=== PATIENT | male | born 1995 | race Caucasian/White ===

== ENCOUNTER 2017-01-12 21:59 | Emergency (ER) | payer SELFPAY ==
[~2017-01-12] VITALS: Ht 162.6 cm; Wt 68.2 kg
[~2017-01-12 21:59] MED LIST: AMOXICILLIN875 MG PO; CEPHALEXIN500 M1 PO; CETIRIZINE10 MG PO; GOOD NEIGHBOR200 M3 PO; NO HOME MEDICATIONS; NORCO 325 MG-51 TA1 PO; NORCO 325 MG-51 TAB PO; ONDANSETRON8 M1 PO; PREDNISONE20 M1 PO; PREDNISONE20 MG PO; RELION VEN0.09 MG/Ac IH; ZOFRAN ODT8 MG PO; ZOFRAN8 MG PO
[2017-01-12] MEDS ORDERED: AMOXICILLIN875 MG PO (22:46)
[2017-01-12 23:00] VITALS: BP 134/74
== END 2017-01-12 23:00 | disposition home or self-care (01) ==
LOC: ED 21:59
DX: K08.89 Other specified disorders of teeth and supporting structures (principal); K03.81 Cracked tooth; F17.210 Nicotine dependence, cigarettes, uncomplicated

== ENCOUNTER → 2022-03-06 | Outpatient (CLI) | payer SELFPAY | LOC: LAB 10:20 | DX: Z20.2 Contact with and (suspected) exposure to infections with a predominantly sexual mode of transmission (principal) ==

== ENCOUNTER → 2022-03-07 | Outpatient (CLI) | payer SELFPAY ==
[2022-03-13 14:24] LABS: HERPES SIMPLEX TYPE 2 IGG 0.05
== END ==
LOC: LAB 18:32
PROVIDERS: Nurse Practitioner
DX: Z20.822 Contact with and (suspected) exposure to COVID-19 (principal)

== ENCOUNTER → 2024-10-06 | Outpatient (CLI) | payer BC, OTHER ==
[2024-10-06 14:20] LABS: TOTAL PROTEIN 8.3 g/dL (6.4-8.3)
[2024-10-06 14:22] LABS: TOTAL BILIRUBIN 0.8 mg/dL (0.2-1.2)
[2024-10-06 14:26] LABS: MAGNESIUM 1.92 mg/dL (1.60-2.60)
== END ==
LOC: LAB 13:48
PROVIDERS: Nurse Practitioner Family
DX: R22.33 Localized swelling, mass and lump, upper limb, bilateral (principal)